=== PATIENT | male | born 1940 | race Caucasian/White ===

== ENCOUNTER → 2018-02-03 | Outpatient (CLI) | payer MEDICARE, OTHER ==
[~2018-02-03] MED LIST: ACDPT PO; AMLO2.5T PO; AMLO5TAB2 PO; CEPH500C PO; CLOP75TA PO; CYCL10TA9 PO; FAMO20TA5 PO; GLIP10TA23 PO; HYDR-3714 PO; HYDR1TAB PO; INSU100I16 SQ; LIRA0.6P SQ; MULT-963 PO; NEBI2.5T5 PO; NF-ALI300T PO; NITR0.3T6 SL; NTR.4SL SL; PITA2TAB2 PO; SITA1TAB6 PO; TRAM-21 PO
--- NOTE | 2018-02-03 13:06 | Diagnostic Imaging Report ---
PROCEDURE: MRI lumbar spine. TECHNIQUE: Multiplanar, multisequence MRI of the lumbar spine was performed without contrast. INDICATION: Low back pain with bilateral lower extremity radiculopathy. Lumbar spinal curvature and alignment are within normal limits. Vertebral body heights and disc spaces are maintained. There is mild desiccation of mid and lower lumbar disc. There are prominent osteophytes which are most pronounced on the anterior margin of endplates. There is mild diffuse bulging of the L3-L4 disc which results in mild neural foraminal stenosis, greater on the left. At L4-L5, there is also diffuse disc bulging with degenerative facet arthropathy and ligamentum flavum hypertrophy. Endplate spurring is most pronounced on the left and there is resulting moderately severe bilateral neural frontal stenosis and left lateral recess stenosis. At L5-S1, there is also degenerative facet arthropathy with probable right facet joint synovial cyst. This results in moderate bilateral neural foraminal stenosis and mild right lateral recess stenosis. There is no evidence of fracture. Conus medullaris unremarkable at the T12 level. Dominant cyst are noted in both kidneys. 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 There is also [id number] bilateral L5-S1 neural foraminal stenosis and mild right neural foraminal stenosis. Dictated by: Dictated on workstation # [id number]
== END ==
LOC: RAD 01-30 08:40
PROVIDERS: ATTEND Internal Medicine
DX: M48.061 Spinal stenosis, lumbar region without neurogenic claudication (principal); M51.16 Intervertebral disc disorders with radiculopathy, lumbar region; M99.73 Connective tissue and disc stenosis of intervertebral foramina of lumbar region
CPT/HCPCS: 72148

== ENCOUNTER → 2018-09-10 | Outpatient (CLI) | payer MEDICARE ==
[~2018-09-10] MED LIST changes: +GADOBUTROL 10 MMOL/10 ML (GADAVIST) VIAL IV ONE
--- NOTE | 2018-09-10 14:16 | Diagnostic Imaging Report ---
PROCEDURE: MR imaging abdomen with and without contrast. TECHNIQUE: Multiplanar, multisequence MR imaging of the abdomen was performed with and without contrast. INDICATION: Kidney cyst noted on prior MRI of the lumbar spine. The study is performed for followup. COMPARISON: Correlation is made with MRI of the lumbar spine from 02/03/2018. FINDINGS: Circumscribed T2 hyperintense masses are identified within both kidneys. Largest mass on the right is in the lower pole measuring 5.8 cm transverse. Largest mass on the left is in the upper pole measuring 5.2 cm transverse. No definite enhancement of the lesions is seen following contrast administration. The liver is unremarkable. No adrenal mass is identified. The pancreas is unremarkable. The visualized bowel loops are normal in caliber. There is no ascites. The aorta is non-aneurysmal. IMPRESSION: Numerous bilateral renal cysts. No enhancing lesion is seen. Dictated by: Dictated on workstation # [id number]
== END ==
LOC: RAD 12:03
PROVIDERS: ATTEND Specialist
DX: N28.1 Cyst of kidney, acquired (principal)
CPT/HCPCS: 74183

== ENCOUNTER 2021-05-15 06:06 | Emergency (ER) | payer MEDICARE ==
[~2021-05-15] VITALS: Ht 175 cm; Wt 84.0 kg
[~2021-05-15 06:06] MED LIST changes: -GADOBUTROL 10 MMOL/10 ML (GADAVIST) VIAL IV ONE
[2021-05-15 06:56] LABS: BILIRUBIN,URINE NEGATIVE (NEGATIVE); CLARITY,URINE CLEAR; COLOR,URINE YELLOW; GLUCOSE, URINE (UA) 3+ (NEGATIVE); KETONES,URINE NEGATIVE (NEGATIVE); LEUKOCYTE ESTERASE ,URINE NEGATIVE (NEGATIVE); NITRITE,URINE NEGATIVE (NEGATIVE); PH,URINE 5.5 (5-9); PROTEIN,URINE 1+ (NEGATIVE)
[2021-05-15 06:56] LABS: BASOPHILS # (AUTO) 0.1 10^3/uL (0.0-0.1); BASOPHILS % (AUTO) 1 % (0-10); EOSINOPHILS # (AUTO) 0.2 10^3/uL (0.0-0.3); EOSINOPHILS % (AUTO) 3 % (0-10); HEMATOCRIT 47 % (40-54); HEMOGLOBIN 16.1 g/dL (13.3-17.7); LYMPHOCYTES # (AUTO) 2.5 10^3/uL (1.0-4.0); LYMPHOCYTES % (AUTO) 29 % (12-44); MEAN CORPUSCULAR HEMOGLOBIN 32 pg (25-34); MEAN CORPUSCULAR HGB CONC 34 g/dL (32-36); MEAN CORPUSCULAR VOLUME 94 fL (80-99); MEAN PLATELET VOLUME 9.8 fL (9.0-12.2); MONOCYTES # (AUTO) 0.7 10^3/uL (0.0-1.0); MONOCYTES % (AUTO) 8 % (0-12); NEUTROPHILS # (AUTO) 5.2 10^3/uL (1.8-7.8); NEUTROPHILS % (AUTO) 59 % (42-75); PLATELET COUNT 344 10^3/uL (130-400); WHITE BLOOD COUNT 8.8 10^3/uL (4.3-11.0)
--- NOTE | 2021-05-15 06:56 | ED Back Pain ---
General Chief Complaint: Back Problems Stated Complaint: LEFT SIDE PAIN Nursing Triage Note: PT AMB TO ED FROM HOME WITH C/O L SIDED BACK/FLANK PAIN THAT BEGAN SATURDAY. REPORTS THE PAIN COMES AND GOES, WORSE WITH MOVEMENT. REPORTS IT FEELS LIKE HE HAS A KIDNEY STONE. DENIES N/V/D OR DIFFICULTY URINATING. Source of Information: Patient Exam Limitations: No Limitations History of Present Illness Date Seen by Provider: May 15, 2021 Time Seen by Provider: 06:40 Initial Comments Patient is an 80-year-old male who presents to the emergency department today with a chief complaint of low left flank pain. Onset on Saturday, 4 days ago. He states it started in the evening time. Patient states it reminds him of previous kidney stone "years ago". Patient states the pain is nonradiating, it seems to be worse with movement. It has been constant and unremitting. He tried Tylenol without any relief of symptoms but did take a hydrocodone last evening at about midnight with mild to moderate relief of symptoms. He states that he potentially has a little bit of decreased amounts of urination decreased frequency. He denies any blood in his urine, urgency. The pain does not radiate, he has no nausea or vomiting. No actual abdominal pain. He has had a history of 3 back surgeries but states that this is not midline pain and does not seem to be down into his legs. He has had no loss of continence. No numbness, weakness or tingling. He denies fevers or chills. No shortness of breath or chest pain. He does have a history of multiple cardiac stents. He has a history of type 2 diabetes. He is on Plavix. Denies any problems with diarrhea, black or bloody stools. Last bowel movement was yesterday. Denies rashes. All other review of systems reviewed and negative except as stated. Timing/Duration: 3-4 Days Severity: Moderate ("7") Pain/Injury Location: Other (low left flank) Modifying Factors: Worse With Movement; Improves With Pain Medication Allergies and Home Medications Allergies Coded Allergies: iodine (Verified Allergy, Unknown, SWELLING, 09/10/18) Patient Home Medication List Home Medication List Reviewed: Yes Acetaminophen/Diphenhydramine (Tylenol Pm) 1 Ea Tab, 1 TAB PO HS, (Reported) Entered as Reported by: MELANIA GODFREY on 12/02/12 1030 Aliskiren Hemifumarate (Tekturna) 300 Mg Tab, 1 TAB PO DAILY, (Reported) Entered as Reported by: DELMAR CHRISTOPHER on 01/26/14 133 Cephalexin Monohydrate (Cephalexin) 500 Mg Capsule, 1 EACH PO TID Prescribed by: MARY QUESADA on 06/17/141815 Clopidogrel Bisulfate (Plavix 75 Mg) 75 Mg Tablet, 75 MG PO DAILY, (Reported) Entered as Reported by: FERNANDO ZUNIGA on 10/17/12138 Cyclobenzaprine Hcl (Cyclobenzaprine Hcl) 10 Mg Tablet, 1 EACH PO Q8HR Prescribed by: DANIEL MENDOZA on 01/26/14 1431 Cyclobenzaprine Hcl (Cyclobenzaprine Hcl) 10 Mg Tablet, 1 EACH PO Q8H PRN for SPASMS Prescribed by: MARY QUESADA on 06/17/141815 Famotidine (Pepcid) 20 Mg Tablet, 20 MG PO BID, (Reported) Entered as Reported by: FERNANDO ZUNIGA on 10/17/12138 Glipizide (Glipizide Xl) 10 Mg Tab.sr.24h, 10 MG PO BID, (Reported) Entered as Reported by: FERNANDO ZUNIGA on 10/17/12138 Hydrocodone Bit/Acetaminophen (Hydrocodone-Apap 5-325 Tab) 1 Tab Tablet, 1 TAB PO Q4H PRN for PAIN Prescribed by: MARY QUESADA on 06/17/141815 Hydrocodone/Acetaminophen (Hydrocodone-Acetamin 7.5-325) 1 Each Tablet, 1 EACH PO Q6H PRN for PAIN-MODERATE (5-7) Prescribed by: GOOD RODRIGUEZ on 05/15/21 0813 Insulin Detemir (Levemir) 100 Unit/1 Ml Insuln.pen, 20 UNIT SQ DAILY AT LUNCH, (Reported) Entered as Reported by: FERNANDO ZUNIGA on 10/17/12 014 Liraglutide (Victoza) 0.6 Mg/0.1 Ml Pen.injctr, 14 MG SQ DAILY, (Reported) Entered as Reported by: DELMAR CHRISTOPHER on 01/26/141334 Multivitamin (Multi-Vitamin Daily) 1 Each Tablet, 1 TAB PO DAILY, (Reported) Entered as Reported by: MELANIA GODFREY on 12/02/12 1030 Nebivolol Hcl (Bystolic) 2.5 Mg Tablet, 2.5 MG PO DAILY, (Reported) Entered as Reported by: FERNANDO ZUNIGA on 10/17/12 0139 Pitavastatin Calcium (Livalo) 2 Mg Tablet, 2 MG PO HS, (Reported) Entered as Reported by: MELANIA GODFREY on 02/09/13 1106 Sitagliptin Phos/Metformin Hcl (Janumet 50/1,000 Mg (Non Form)) 1 Each Tablet, 1 EACH PO BID, (Reported) Entered as Reported by: DELMAR CHRSITOPHER on 01/26/14 1335 Tramadol Hcl (Ultram) 50 Mg Tablet, 50 MG PO Q4H Prescribed by: DANIEL MENDOZA on 01/26/14 1431 Review of Systems Constitutional: see HPI EENTM: no symptoms reported Respiratory: no symptoms reported Cardiovascular: no symptoms reported Gastrointestinal: other (low left flank pain) Genitourinary: other (decreased volume/frequency) Skin: no symptoms reported All Other Systems Reviewed Negative Unless Noted: Yes Past Hkwgdps-Arhdby-Viuqsu Hx Patient Social History Tobacco Use?: No Use of E-Cig and/or Vaping dev: No Substance use?: No Alcohol Use?: Yes Alcohol type: Beer, Wine Alcohol Frequency: Once in a while Pt feels they are or have been: No Immunizations Up To Date Tetanus Booster (TDap): Less than 5yrs Influenza Vaccine Up-to-Date: No; Not Current First/Initial COVID19 Vaccinat: 2020 Second COVID19 Vaccination Jesús: 2020 Third COVID19 Vaccination Date: MAR 2021 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 oz. 92.641607ug; 27.00 BMI Method:Stated General Appearance: No Apparent Distress, WD/WN HEENT: PERRL/EOMI Neck: Normal Inspection Cardiovascular: Regular Rate, Rhythm, Normal Peripheral Pulses Respiratory: Lungs Clear, Normal Breath Sounds, No Accessory Muscle Use, No Respiratory Distress Peripheral Pulses: 2+ Femoral (L) Gastrointestinal: Normal Bowel Sounds, No Pulsatile Mass, Non Tender, Soft; No Abnormal Bowel Sounds, No Distended, No Guarding, No Rebound, No Tenderness; Other (no tenderness in the abdomen, no reproducible tenderness in the left flank; however, patient states pain is in the low left flank, just above the posterior superior iliac crest; no overlying rashes/lesions.) Back: No Vertebral Tenderness, Other (negative straight leg raise) Extremity: Normal Capillary Refill, Normal Inspection, Normal Range of Motion, Non Tender, No Calf Tenderness Neurologic/Psychiatric: Alert, Oriented x3, No Motor/Sensory Deficits, Normal Mood/Affect Skin: Normal Color, Warm/Dry, Other (no rashes or lestions overlying the skin of the affected area) Progress/Results/Core Measures Results/Orders Lab Results Laboratory Tests Test 05/15/21 06:18 05/15/21 06:24 Range/Units Urine Color YELLOW Urine Clarity CLEAR Urine pH 5.5 5-9 Urine Specific [place] >=1.030 1.016-1.022 Urine Protein 1+ H NEGATIVE Urine Glucose (UA) 3+ H NEGATIVE Urine Ketones NEGATIVE NEGATIVE Urine Nitrite NEGATIVE NEGATIVE Urine Bilirubin NEGATIVE NEGATIVE Urine Urobilinogen 0.2 < = 1.0 MG/DL Urine Leukocyte Esterase NEGATIVE NEGATIVE Urine RBC (Auto) TRACE-I H NEGATIVE Urine RBC RARE /HPF Urine WBC RARE /HPF Urine Squamous Epithelial Cells RARE /HPF Urine Crystals NONE /LPF Urine Bacteria TRACE /HPF Urine Casts NONE /LPF Urine Mucus NEGATIVE /LPF Urine Culture Indicated NO White Blood Count 8.8 4.3-11.0 10^3/uL Red Blood Count 5.06 4.30-5.52 10^6/uL Hemoglobin 16.1 13.3-17.7 g/dL Hematocrit 47 40-54 % Mean Corpuscular Volume 94 80-99 fL Mean Corpuscular Hemoglobin 32 25-34 pg Mean Corpuscular Hemoglobin Concent 34 32-36 g/dL Red Cell Distribution Width 13.2 10.0-14.5 % Platelet Count 344 130-400 10^3/uL Mean Platelet Volume 9.8 9.0-12.2 fL Immature Granulocyte % (Auto) 1 % Neutrophils (%) (Auto) 59 42-75 % Lymphocytes (%) (Auto) 29 12-44 % Monocytes (%) (Auto) 8 0-12 % Eosinophils (%) (Auto) 3 0-10 % Basophils (%) (Auto) 1 0-10 % Neutrophils # (Auto) 5.2 1.8-7.8 10^3/uL Lymphocytes # (Auto) 2.5 1.0-4.0 10^3/uL Monocytes # (Auto) 0.7 0.0-1.0 10^3/uL Eosinophils # (Auto) 0.2 0.0-0.3 10^3/uL Basophils # (Auto) 0.1 0.0-0.1 10^3/uL Immature Granulocyte # (Auto) 0.1 0.0-0.1 10^3/uL Sodium Level 136 135-145 MMOL/L Potassium Level 3.8 3.6-5.0 MMOL/L Chloride Level 102 98-107 MMOL/L Carbon Dioxide Level 20 L 21-32 MMOL/L Anion Gap 14 5-14 MMOL/L Blood Urea Nitrogen 18 7-18 MG/DL Creatinine 1.15 0.60-1.30 MG/DL Estimat Glomerular Filtration Rate 61 BUN/Creatinine Ratio 16 Glucose Level 174 H 70-105 MG/DL Calcium Level 9.7 8.5-10.1 MG/DL My Orders Orders - GOOD RODRIGUEZ MD Ed Iv/Invasive Line Start (05/15/21 06:50) Cbc With Automated Diff (05/15/21 06:50) Basic Metabolic Panel (05/15/21 06:50) Ua Culture If Indicated (05/15/21 06:50) Abdomen/Kub 1view (05/15/21 06:50) Ct Abd/Pelvis Wo(Kidney Stone) (05/15/21 06:50) Hydrocodone/Apap 7.5/325 Tab (Lortab 7. (05/15/21 07:00) Medications Given in ED Vital Signs/I&O 05/15/21 05/15/21 06:14 08:32 Temp 36.3 Pulse 94 87 Resp 16 16 B/P (MAP) 145/86 (105) 125/74 Pulse Ox 94 97 O2 Delivery Room Air Room Air Blood Pressure Mean: 105 Progress Progress Note : Time: 08:08 Progress Note Patient reevaluated, had significant relief of discomfort with the 7.5 hydrocodone. Labs have been reviewed, he has a mild elevation in his serum blood sugar, he is a known diabetic. The rest of his labs are unremarkable. He had trace blood in his urine. CT scan of the abdomen and pelvis, renal stone protocol was reviewed, no evidence of obstructive uropathy or any other acute pathology. His vital signs remained stable. I recommended some anti- inflammatories as well as some hydrocodone for pain. I also recommended close observation of symptoms, return precautions were given. Patient is instructed to follow-up with his primary care physician. He verbalizes understanding and is comfortable with this plan of care. All questions are sought and answered. Patient is stable for discharge. Diagnostic Imaging Diagonstic Imaging: CT Comments [facility], [place] NAME: ROBERT MALDONADO [facility] REC#: [id number] PT STATUS: REG ER : 1940 PHYSICIAN: GOOD RODRIGUEZ MD ADMIT DATE: 05/15/21/ER Draft Date of Exam:05/15/21 CT ABD/PELVIS WO(KIDNEY STONE) PROCEDURE: CT urinary tract, rule out kidney stone. TECHNIQUE: Multiple contiguous axial images were obtained through the abdomen and pelvis without the use of intravenous contrast. Auto Exposure Controls were utilized during the CT exam to meet ALARA standards for radiation dose reduction. INDICATION: Flank pain. FINDINGS: The heart size is normal. There is mild bibasilar atelectasis and/or pneumonitis. The liver is normal in size without focal lesions. Gallbladder surgically absent. No biliary ductal dilatation. Spleen is normal. The pancreas and adrenal glands are unremarkable. There are bilateral renal cysts. There is no evidence of obstructive uropathy. There is moderate atherosclerotic calcification of the aorta which is nonaneurysmal. The bowel gas pattern is nonspecific. Bladder is normal. There is no pelvic mass, adenopathy or free fluid. There is no free air. No ascites. No focal inflammatory changes. There are degenerative and postoperative changes in spine. IMPRESSION: Patchy bibasilar atelectasis and/or pneumonitis. Bilateral renal cysts without evidence of obstructive uropathy. Moderate atherosclerotic calcification of the aorta which is nonaneurysmal. Degenerative and postsurgical changes in the spine. Dictated on workstation # [id number] Dict: 05/15/21 0731 Trans: 05/15/21 0735 CVB [id number] Interpreted by: LATRICIA ERICKSON MD Electronically signed by: [facility] [place], [place] NAME: ROBERT MALDONADO [facility] REC#: [id number] PT STATUS: REG ER : 1940 PHYSICIAN: GOOD RODRIGUEZ MD ADMIT DATE: 05/15/21/ER Draft Date of Exam:05/15/21 ABDOMEN/KUB 1VIEW REASON FOR EXAM: Left-sided flank pain. COMPARISON: None TECHNIQUE: 2 views of the abdomen FINDINGS: The bowel gas pattern is nondistended. No large collection of free intraperitoneal air is seen. A moderate amount of gas and fecal material are present in the colon. Surgical clips are seen in the pelvis. No abnormal extraosseous calcifications are present. Posterior fusion changes are seen in the lumbar spine. IMPRESSION: 1. No evidence of bowel obstruction or large collection of free intraperitoneal air. 2. Moderate amount of stool seen in the colon which can be seen with constipation. Dictated on workstation # [id number] Dict: 05/15/21 0805 Trans: 05/15/21 0809 CVB [id number] Interpreted by: BERNICE LANGE DO Electronically signed by: Departure Impression Primary Impression: Left flank pain Disposition: 01 HOME, SELF-CARE Condition: Stable Departure-Patient Inst. Decision time for Depature: 08:11 Referrals: LYNNE GARCIA DO (PCP/Family) Primary Care Physician Patient Instructions: Flank Pain Add. Discharge Instructions: Monitor yourself for symptoms such as fever, abdominal pain, nausea and burning with urination. Take an ppud-sqn-zhirlia anti-inflammatory such as ibuprofen, 2 to 3 pills which is 400 to 600 mg every 6-8 hours as needed for pain. You can also take hydrocodone, 7.5 mg tablets every 6 hours as needed for worse pain. Please come back to the emergency department if you develop any worsening symptoms. Please follow-up with your primary care provider. Scripts Hydrocodone/Acetaminophen (Hydrocodone-Acetamin 7.5-325) 1 Each Tablet 1 EACH PO Q6H PRN for PAIN-MODERATE (5-7), #15 TAB Prov: GOOD RODRIGUEZ MD 05/15/21 Copy Copies To 1: LYNNE GARCIA KATHRYN M MD May 15, 2021 06:56
[2021-05-15] MEDS ORDERED: HYDROcodone/APAP 7.5 MG/325 MG (LORTAB, LORCET PLUS) TABLET PO ONE (07:00)
[2021-05-15 07:02] LABS: POTASSIUM 3.8 MMOL/L (3.6-5.0)
[2021-05-15 07:04] LABS: CALCIUM 9.7 MG/DL (8.5-10.1)
[2021-05-15 07:08] LABS: CREATININE SERUM 1.15 MG/DL (0.60-1.30)
[2021-05-15 07:15] LABS: BACTERIA,URINE TRACE /HPF; RBC,URINE RARE /HPF; SQUAMOUS EPITHELIAL CELL,UR RARE /HPF; WBC,URINE RARE /HPF
--- NOTE | 2021-05-15 07:35 | Diagnostic Imaging Report ---
PROCEDURE: CT urinary tract, rule out kidney stone. TECHNIQUE: Multiple contiguous axial images were obtained through the abdomen and pelvis without the use of intravenous contrast. Auto Exposure Controls were utilized during the CT exam to meet ALARA standards for radiation dose reduction. INDICATION: Flank pain. FINDINGS: The heart size is normal. There is mild bibasilar atelectasis and/or pneumonitis. The liver is normal in size without focal lesions. Gallbladder surgically absent. No biliary ductal dilatation. Spleen is normal. The pancreas and adrenal glands are unremarkable. There are bilateral renal cysts. There is no evidence of obstructive uropathy. There is moderate atherosclerotic calcification of the aorta which is nonaneurysmal. The bowel gas pattern is nonspecific. Bladder is normal. There is no pelvic mass, adenopathy or free fluid. There is no free air. No ascites. No focal inflammatory changes. There are degenerative and postoperative changes in spine. IMPRESSION: Patchy bibasilar atelectasis and/or pneumonitis. Bilateral renal cysts without evidence of obstructive uropathy. Moderate atherosclerotic calcification of the aorta which is nonaneurysmal. Degenerative and postsurgical changes in the spine. Dictated by: Dictated on workstation # [id number]
--- NOTE | 2021-05-15 08:10 | Diagnostic Imaging Report ---
REASON FOR EXAM: Left-sided flank pain. COMPARISON: None TECHNIQUE: 2 views of the abdomen FINDINGS: The bowel gas pattern is nondistended. No large collection of free intraperitoneal air is seen. A moderate amount of gas and fecal material are present in the colon. Surgical clips are seen in the pelvis. No abnormal extraosseous calcifications are present. Posterior fusion changes are seen in the lumbar spine. IMPRESSION: 1. No evidence of bowel obstruction or large collection of free intraperitoneal air. 2. Moderate amount of stool seen in the colon which can be seen with constipation. Dictated by: Dictated on workstation # [id number]
[2021-05-15] MEDS ORDERED: HYDR-3817 PO (08:13)
[2021-05-15 08:32] VITALS: BP 125/74
== END 2021-05-15 08:32 | disposition home or self-care (01) ==
LOC: EDUNIT# 06:06 → ER 06:08
DX: R10.9 Unspecified abdominal pain (principal)
CPT/HCPCS: 36415; 74018; 74176; 80048; 81000; 85025

== ENCOUNTER 2022-01-09 09:33 | Inpatient (IN) | payer MEDICARE ==
[2022-01-09] VITALS (11 sets, daily range): BP systolic 105–159; BP diastolic 62–90
[~2022-01-09] VITALS: Ht 175 cm; Wt 85.4 kg
[~2022-01-09 09:33] MED LIST changes: +HYDR-3817 PO
[2022-01-09 09:47] LABS: BASOPHILS % (AUTO) 0 % (0-10); EOSINOPHILS # (AUTO) 0.1 10^3/uL (0.0-0.3); EOSINOPHILS % (AUTO) 1 % (0-10); HEMATOCRIT 51 % (40-54); HEMOGLOBIN 17.1 g/dL (13.3-17.7); LYMPHOCYTES # (AUTO) 1.4 10^3/uL (1.0-4.0); LYMPHOCYTES % (AUTO) 14 % (12-44); MEAN CORPUSCULAR HEMOGLOBIN 31 pg (25-34); MEAN CORPUSCULAR HGB CONC 34 g/dL (32-36); MEAN CORPUSCULAR VOLUME 93 fL (80-99); MEAN PLATELET VOLUME 10.4 fL (9.0-12.2); MONOCYTES # (AUTO) 0.6 10^3/uL (0.0-1.0); MONOCYTES % (AUTO) 6 % (0-12); NEUTROPHILS # (AUTO) 7.5 10^3/uL (1.8-7.8); NEUTROPHILS % (AUTO) 77 % (42-75); PLATELET COUNT 314 10^3/uL (130-400); WHITE BLOOD COUNT 9.8 10^3/uL (4.3-11.0)
[2022-01-09 10:04] LABS: ALBUMIN 4.3 GM/DL (3.2-4.5); POTASSIUM 4.4 MMOL/L (3.6-5.0)
[2022-01-09 10:05] LABS: CALCIUM 9.4 MG/DL (8.5-10.1)
[2022-01-09 10:06] LABS: TOTAL PROTEIN 7.6 GM/DL (6.4-8.2)
[2022-01-09 10:08] LABS: BILIRUBIN,TOTAL 0.7 MG/DL (0.1-1.0)
[2022-01-09 10:10] LABS: CREATININE SERUM 1.26 MG/DL (0.60-1.30)
[2022-01-09 10:13] LABS: MAGNESIUM 1.8 MG/DL (1.6-2.4)
--- NOTE | 2022-01-09 10:21 | ED Chest Pain ---
General Chief Complaint: Chest Pain Stated Complaint: CP Nursing Triage Note: PT PRESENTS TO ED VIA EMS FROM DR RODGERS OFFICE FOR CP. PT REPROTS HE HAD M,ILD CP YESTERDAY BUT WHEN HE WOKE UP THIS AM IT WENT WAY BUT CAME BACK LATER IN THE MORNING. PT THEN WENT TO SEE HIS DR WHO REFERRED HIM TO ED. PT RECIEVED 324 MG ASA AND NITRO X 2 FLIGHT OPERATIONS MANAGER. PT REPORTS HE IS CURRENTLY CP FREE UPON ARRIVAL TO ED. Source: patient Exam Limitations: no limitations History of Present Illness Date Seen by Provider: Jan 09, 2022 Time Seen by Provider: 09:34 Initial Comments Here with report of chest pain centrally that he had yesterday that went away but came back again this morning. He went to see his doctor, Dr. Roldan, who ultimately sent him here by EMS. Patient did receive ASA 324 mg p.o. as well as nitro sublingual x1 at the doctor's office which did help the pain and repeated by EMS which resolved the pain. Does have history of heart stents and follows with Dr. Oliver in [place]. Denies nausea, vomiting, sweating, weakness or other concerns. States he is pain-free currently. EMS noted that his blood pressure was a little higher when his pain was going on and the blood pressure improved and pain went away after nitroglycerin sublingual. Timing/Duration: changing over time, resolved prior to arrival, 1 day Severity/Quality: moderate, pressure Location: central Radiation: no radiation Prior CP/Workup: cardiac cath ASA po FLIGHT OPERATIONS MANAGER: Yes NTG SL FLIGHT OPERATIONS MANAGER: Yes Associated Symptoms: No abdominal pain, No diaphoresis, No dizziness, No nausea/vomiting, No shortness of breath, No weakness Allergies and Home Medications Allergies Coded Allergies: iodine (Verified Allergy, Unknown, SWELLING, 09/10/18) Patient Home Medication List Home Medication List Reviewed: Yes Acetaminophen/Diphenhydramine (Tylenol Pm) 1 Ea Tab, 1 TAB PO HS, (Reported) Entered as Reported by: MELANIA GODFREY on 12/02/12 1030 Aliskiren Hemifumarate (Tekturna) 300 Mg Tab, 1 TAB PO DAILY, (Reported) Entered as Reported by: DELMAR CHRISTOPHER on 01/26/14 1335 Cephalexin Monohydrate (Cephalexin) 500 Mg Capsule, 1 EACH PO TID Prescribed by: MARY QUESADA on 06/17/141815 Clopidogrel Bisulfate (Plavix 75 Mg) 75 Mg Tablet, 75 MG PO DAILY, (Reported) Entered as Reported by: FERNANDO ZUNIGA on 10/17/12138 Cyclobenzaprine Hcl (Cyclobenzaprine Hcl) 10 Mg Tablet, 1 EACH PO Q8HR Prescribed by: DANIEL MENDOZA on 01/26/14 1431 Cyclobenzaprine Hcl (Cyclobenzaprine Hcl) 10 Mg Tablet, 1 EACH PO Q8H PRN for SPASMS Prescribed by: MARY QUESADA on 06/17/141815 Famotidine (Pepcid) 20 Mg Tablet, 20 MG PO BID, (Reported) Entered as Reported by: FERNANDO ZUNIGA on 10/17/12138 Glipizide (Glipizide Xl) 10 Mg Tab.sr.24h, 10 MG PO BID, (Reported) Entered as Reported by: FERNANDO ZUNIGA on 10/17/12138 Hydrocodone Bit/Acetaminophen (Hydrocodone-Apap 5-325 Tab) 1 Tab Tablet, 1 TAB PO Q4H PRN for PAIN Prescribed by: MARY QUESADA on 06/17/141815 Hydrocodone/Acetaminophen (Hydrocodone-Acetamin 7.5-325) 1 Each Tablet, 1 EACH PO Q6H PRN for PAIN-MODERATE (5-7) Prescribed by: GOOD RODRIGUEZ on 05/15/21 0813 Insulin Detemir (Levemir) 100 Unit/1 Ml Insuln.pen, 20 UNIT SQ DAILY AT LUNCH, (Reported) Entered as Reported by: FERNANDO ZUNIGA on 10/17/12 014 Liraglutide (Victoza) 0.6 Mg/0.1 Ml Pen.injctr, 14 MG SQ DAILY, (Reported) Entered as Reported by: DELMAR CHRISTOPHER on 01/26/14 1335 Multivitamin (Multi-Vitamin Daily) 1 Each Tablet, 1 TAB PO DAILY, (Reported) Entered as Reported by: MELANIA GODFREY on 12/02/12 1030 Nebivolol Hcl (Bystolic) 2.5 Mg Tablet, 2.5 MG PO DAILY, (Reported) Entered as Reported by: FERNANDO ZUNIGA on 10/17/12138 Pitavastatin Calcium (Livalo) 2 Mg Tablet, 2 MG PO HS, (Reported) Entered as Reported by: MELANIA GODFREY on 02/09/13 1106 Sitagliptin Phos/Metformin Hcl (Janumet 50/1,000 Mg (Non Form)) 1 Each Tablet, 1 EACH PO BID, (Reported) Entered as Reported by: DELMAR CHRISTOPHER on 01/26/14 1335 Tramadol Hcl (Ultram) 50 Mg Tablet, 50 MG PO Q4H Prescribed by: DANIEL MENDOZA on 01/26/14 1431 Review of Systems Review of Systems Constitutional: see HPI; No chills, No fever EENTM: No Nose Congestion, No Throat Pain Respiratory: Denies Cough, Denies Shortness of Air Cardiovascular: Chest Pain; Denies Edema Gastrointestinal: Denies Nausea, Denies Vomiting Genitourinary: No Symptoms Reported Musculoskeletal: No back pain, No muscle pain Skin: no symptoms reported Psychiatric/Neurological: No Symptoms Reported All Other Systems Reviewed Negative Unless Noted: Yes Past Dfksqgn-Kuafmu-Oisdnx Hx Patient Social History Tobacco Use?: No Substance use?: No Alcohol Use?: Yes Alcohol Frequency: Once in a while Pt feels they are or have been: No Immunizations Up To Date Tetanus Booster (TDap): Less than 5yrs First/Initial COVID19 Vaccinat: 2020 Second COVID19 Vaccination Jesús: 2020 Third COVID19 Vaccination Date: MAR 2021 Seasonal Allergies Seasonal Allergies: No Past Medical History Surgery/Hospitalization HX: CHF, DM 2, HTN, 12 STENTS, high chol Hypertension Reproductive Disorders: No Sexually Transmitted Disease: No HIV/AIDS: No Diabetes, Insulin dep Adverse Reaction/Blood Tranf: No Family Medical History Reviewed Nursing Family Hx FH: cancer 19 MOTHER Myocardial infarction 19 FATHER Physical Exam Vital Signs Vital Signs - First Documented 01/09/22 09:45 Temp 36.7 Pulse 108 Resp 22 B/P (MAP) 133/98 (110) Pulse Ox 95 Capillary Refill : Less Than 3 Seconds Height, Weight, BMI Height: 5'9" Weight: 205lbs. oz. 92.600144am; 28.00 BMI Method:Stated General Appearance: No Apparent Distress, WD/WN HEENT: PERRL/EOMI, Pharynx Normal Neck: Non Tender, Supple Respiratory: Lungs Clear, Normal Breath Sounds Cardiovascular: Regular Rate, Rhythm, No Murmur Gastrointestinal: Non Tender, Soft Extremity: Normal Range of Motion, Non Tender Neurologic/Psychiatric: Alert, Oriented x3 Skin: Normal Color, Warm/Dry Progress/Results/Core Measures Results/Orders Lab Results Laboratory Tests Test 01/09/22 09:38 Range/Units White Blood Count 9.8 4.3-11.0 10^3/uL Red Blood Count 5.44 4.30-5.52 10^6/uL Hemoglobin 17.1 13.3-17.7 g/dL Hematocrit 51 40-54 % Mean Corpuscular Volume 93 80-99 fL Mean Corpuscular Hemoglobin 31 25-34 pg Mean Corpuscular Hemoglobin Concent 34 32-36 g/dL Red Cell Distribution Width 13.6 10.0-14.5 % Platelet Count 314 130-400 10^3/uL Mean Platelet Volume 10.4 9.0-12.2 fL Immature Granulocyte % (Auto) 1 % Neutrophils (%) (Auto) 77 H 42-75 % Lymphocytes (%) (Auto) 14 12-44 % Monocytes (%) (Auto) 6 0-12 % Eosinophils (%) (Auto) 1 0-10 % Basophils (%) (Auto) 0 0-10 % Neutrophils # (Auto) 7.5 1.8-7.8 10^3/uL Lymphocytes # (Auto) 1.4 1.0-4.0 10^3/uL Monocytes # (Auto) 0.6 0.0-1.0 10^3/uL Eosinophils # (Auto) 0.1 0.0-0.3 10^3/uL Basophils # (Auto) 0.0 0.0-0.1 10^3/uL Immature Granulocyte # (Auto) 0.1 0.0-0.1 10^3/uL Prothrombin Time 13.0 12.2-14.7 SEC INR Comment 1.0 0.8-1.4 Activated Partial Thromboplast Time 30 24-35 SEC D-Dimer < 0.27 0.00-0.49 UG/ML Sodium Level 138 135-145 MMOL/L Potassium Level 4.4 3.6-5.0 MMOL/L Chloride Level 101 98-107 MMOL/L Carbon Dioxide Level 22 21-32 MMOL/L Anion Gap 15 H 5-14 MMOL/L Blood Urea Nitrogen 14 7-18 MG/DL Creatinine 1.26 0.60-1.30 MG/DL Estimat Glomerular Filtration Rate 57 BUN/Creatinine Ratio 11 Glucose Level 273 H 70-105 MG/DL Calcium Level 9.4 8.5-10.1 MG/DL Corrected Calcium 9.2 8.5-10.1 MG/DL Magnesium Level 1.8 1.6-2.4 MG/DL Total Bilirubin 0.7 0.1-1.0 MG/DL Aspartate Amino Transf (AST/SGOT) 24 5-34 U/L Alanine Aminotransferase (ALT/SGPT) 27 0-55 U/L Alkaline Phosphatase 77 40-136 U/L Myoglobin 51.1 10.0-92.0 NG/ML Troponin I 0.310 *H <0.028 NG/ML B-Type Natriuretic Peptide 56.2 <100.0 PG/ML Total Protein 7.6 6.4-8.2 GM/DL Albumin 4.3 3.2-4.5 GM/DL My Orders Orders - YANDEL URENA MD Cbc With Automated Diff (01/09/22 09:42) Magnesium (01/09/22 09:42) Chest 1 View, Ap/Pa Only (01/09/22 09:42) Ekg Tracing (01/09/22 09:42) Comprehensive Metabolic Panel (01/09/22 09:42) Myoglobin Serum (01/09/22 09:42) Protime With Inr (01/09/22 09:42) Partial Thromboplastin Time (01/09/22 09:42) O2 (01/09/22 09:42) Monitor-Rhythm Ecg Trace Only (01/09/22 09:42) Lipid Panel (01/10/22 06:00) Ed Iv/Invasive Line Start (01/09/22 09:42) Bnp [place] (01/09/22 09:42) Fibrin Degradation Products (01/09/22 09:42) Troponin I [place] (01/09/22 09:42) Enoxaparin Injection (Lovenox Injection) (01/09/22 10:45) Ed Admission (Communication) (01/09/22 10:45) Medications Given in ED Current Medications Medications Dose Ordered Sig/Ingrid Route Start Time Stop Time Status Last Admin Dose Admin Enoxaparin Sodium 90 mg ONCE ONCE SC 01/09/22 10:45 01/09/22 10:46 DC 01/09/22 10:51 90 MG Vital Signs/I&O 01/09/22 09:45 Temp 36.7 Pulse 108 Resp 22 B/P (MAP) 133/98 (110) Pulse Ox 95 Blood Pressure Mean: 110 Progress Progress Note : Progress Note Seen and evaluated. IV established by EMS, labs, EKG and chest x-ray ordered. Patient has had aspirin and nitroglycerin. Overall doing better currently. Monitor patient. 1025: Lab notified of troponin of 0.31. 1045: I have discussed the case with both Dr. Ryan and Dr. Lawson. Dr. Lawson accepts patient in consult and recommends Lovenox 1 mg/kg subcu which has been ordered. Dr. Ryan accepts patient for admission, inpatient status. Patient and family agree with plan. Initial ECG Impression Date: Jan 09, 2022 Initial ECG Impression Time: 09:40 Initial ECG Rate: 104 Initial ECG Rhythm: S.Tach Comment Sinus rhythm with inferior Q waves, left axis deviation, tachycardic rate that is changed from 11/27/2012. No evidence of ST elevation NM. Interpreted by me. Diagnostic Imaging Diagonstic Imaging: Xray Plain Films/CT/US/NM/MRI: chest Comments [facility], [place] NAME: ROBERT MALDONADO [facility] REC#: [id number] PT STATUS: REG ER : 1940 PHYSICIAN: YANDEL URENA MD ADMIT DATE: 01/09/22/ER Draft Date of Exam:01/09/22 CHEST 1 VIEW, AP/PA ONLY INDICATION: Chest pain. TECHNIQUE: Single view chest 10:03 AM. CORRELATION STUDY: 12/02/2012 FINDINGS: Heart size enlarged. There is long coronary artery stent over left heart border. Vasculature overall within normal limits. Slight asymmetric opacity medial right lung base may reflect minimal areas of infiltrate. Otherwise superimposed what appears to be chronic change of the lung parenchyma. IMPRESSION: 1. Cardiac enlargement without failure. Long coronary artery stent over left heart border. 2. Question minimal atelectasis or infiltrate medial right lung base. Dictated on workstation # [id number] Dict: 01/09/22 1017 Trans: 01/09/22 [facility] [id number] Interpreted by: JEFFERY WOLFF DO Electronically signed by: Departure Communication (Admissions) Time/Spoke to Admitting Phy: 10:44 Time/Spoke to Consulting Phy: 10:40 Impression Primary Impression: Non-STEMI (non-ST elevated myocardial infarction) Disposition: ADMITTED INPATIENT Condition: Stable Admissions Decision to Admit Reason: Admit from ER (General) Decision to Admit/Date: Jan 09, 2022 Time/Decision to Admit Time: 10:40 Departure-Patient Inst. Referrals: LYNNE ROLDAN DO (PCP) Primary Care Physician JUAN C ROLDAN DNP (Family) Primary Care Physician YANDEL URENA MD Jan 09, 2022 10:21
--- NOTE | 2022-01-09 10:24 | Diagnostic Imaging Report ---
INDICATION: Chest pain. TECHNIQUE: Single view chest 10:03 AM. CORRELATION STUDY: 12/02/2012 FINDINGS: Heart size enlarged. There is long coronary artery stent over left heart border. Vasculature overall within normal limits. Slight asymmetric opacity medial right lung base may reflect minimal areas of infiltrate. Otherwise superimposed what appears to be chronic change of the lung parenchyma. IMPRESSION: 1. Cardiac enlargement without failure. Long coronary artery stent over left heart border. 2. Question minimal atelectasis or infiltrate medial right lung base. Dictated by: Dictated on workstation # [id number]
[2022-01-09] MEDS ORDERED: ENOXAPARIN 100 MG/1 ML (LOVENOX) SYR SC ONE (10:45)
--- NOTE | 2022-01-09 11:26 | History & Physical-Hospitalist ---
History of Present Illness HPI/Chief Complaint Patient is an 81-year-old male with past medical history of coronary artery disease status post multiple stents who presented to the emergency department due to chest pain. He states that he started feeling poorly yesterday but it got better overnight. He woke up and had recurrent chest pressure. He states it did not radiate anywhere else. He denies any diaphoresis, nausea, shortness of breath, lower extremity edema. He checked his blood pressure this morning and states it was 207/134. He was then seen by his primary care physician this morning who did an EKG and gave him nitro which helped his pain. They recommended him seeking evaluation in the emergency department at that point. He received another nitro which resolved his pain but work-up revealed a troponin of 0.3 and he is being admitted for further management of his NSTEMI. Source: patient Date Seen 01/09/22 Time Seen by a Provider: 11:19 Attending Physician Micheal Roldan DO PCP Admitting Physician: Attending Physician: Referring Physician Date of Admission Home Medications & Allergies Home Medications Reviewed patient Home Medication Reconciliation performed by pharmacy medication reconciliations processing technician and/or nursing. Patients Allergies have been reviewed. Allergies Allergies Coded Allergies iodine (Verified Allergy, Unknown, SWELLING, 09/10/18) Past Nhjdtzt-Hkaemm-Njayqi Hx Patient Social History Marrital Status: Employed/Student: retired Tobacco Use?: No Smoking Status: Never a Smoker Substance use?: No Alcohol Use?: Yes Alcohol Frequency: Once in a while Pt feels they are or have been: No Immunizations Up To Date Date of Influenza Vaccine: Apr 16, 2014 First/Initial COVID19 Vaccinat: 2020 Second COVID19 Vaccination Jesús: 2020 Date of Pneumonia Vaccine: May 16, 2012 Seasonal Allergies Seasonal Allergies: No Current Status Advance Directives: No Primary Language: Kenyan Preferred Spoken Language: Kenyan Past Medical History Coronary Artery Disease, Hypertension Sexually Transmitted Disease: No HIV/AIDS: No Diabetes, Non-Insulin dep Adverse Reaction/Blood Tranf: No Family Medical History Reviewed Nursing Family Hx FH: cancer 19 MOTHER Myocardial infarction 19 FATHER Heart Disease Review of Systems Constitutional: No diaphoresis; malaise (x1 day) EENTM: no symptoms reported Respiratory: No short of breath Cardiovascular: chest pain; No edema; Hx of Intervention; No palpitations, No syncope Gastrointestinal: No abdominal pain, No loss of appetite, No nausea, No vomiting Genitourinary: no symptoms reported Musculoskeletal: no symptoms reported Skin: no symptoms reported Psychiatric/Neurological: No Symptoms Reported Physical Exam Physical Exam Vital Signs Vital Signs - First Documented 01/09/22 09:45 Temp 36.7 Pulse 108 Resp 22 B/P (MAP) 133/98 (110) Pulse Ox 96 O2 Delivery Nasal Cannula O2 Flow Rate 2.00 Capillary Refill : Less Than 3 Seconds Height, Weight, BMI Height: 5'9" Weight: 205lbs. oz. 92.898820bk; 28.00 BMI Method:Stated General Appearance: No Apparent Distress, WD/WN, Obese HEENT: PERRL/EOMI, Moist Mucous Membranes; No Scleral Icterus (L), No Scleral Icterus (R) Neck: Normal Inspection, Supple; No Carotid Bruit Respiratory: Lungs Clear, No Accessory Muscle Use, No Respiratory Distress Cardiovascular: Regular Rate, Rhythm, No JVD, No Murmur Gastrointestinal: Normal Bowel Sounds, Non Tender, Soft Extremity: Normal Capillary Refill, No Calf Tenderness, No Pedal Edema Neurologic/Psychiatric: Alert, Oriented x3, Normal Mood/Affect Skin: Normal Color, Warm/Dry Results Results/Procedures Labs Laboratory Tests 01/10/22 04:55 01/11/22 04:39 Patient resulted labs reviewed. Imaging: Reviewed Imaging Report Imaging [facility], [place] NAME: ROBERT MALDONADO [facility] REC#: [id number] PT STATUS: REG ER : 1940 PHYSICIAN: YANDEL URENA MD ADMIT DATE: 01/09/22/ER Draft Date of Exam:01/09/22 CHEST 1 VIEW, AP/PA ONLY INDICATION: Chest pain. TECHNIQUE: Single view chest 10:03 AM. CORRELATION STUDY: 12/02/2012 FINDINGS: Heart size enlarged. There is long coronary artery stent over left heart border. Vasculature overall within normal limits. Slight asymmetric opacity medial right lung base may reflect minimal areas of infiltrate. Otherwise superimposed what appears to be chronic change of the lung parenchyma. IMPRESSION: 1. Cardiac enlargement without failure. Long coronary artery stent over left heart border. 2. Question minimal atelectasis or infiltrate medial right lung base. Dictated on workstation # [id number] Dict: 01/09/22 1017 Trans: 01/09/22 1023 [id number] Interpreted by: JEFFERY WOLFF DO Electronically signed by: Assessment/Plan Admission Diagnosis NSTEMI Admission Status: Inpatient Order (span 2 midnights) Reason for Inpatient Admission: see below Assessment and Plan NSTEMI CAD Chest pain resolved with nitro Discussed with Dr Lawson who will see him this afternoon Troponin elevated 0.310 on admission ASA given at PCP's Lovenox 90mg x1 Likely will need cath pending his next troponin HTN BP was 207/134 at home Improved now with nitro Continue to monitor IDDMII Continue home regimen as able SSI BS 273 on arrival Accu checks ACHS Hold home metformin DVT ppx: Lovenox therapeutic as above will cover for today Diagnosis/Problems Diagnosis/Problems (1) CAD (coronary artery disease) (2) Essential (primary) hypertension (3) HLD (hyperlipidemia) (4) Non-insulin dependent type 2 diabetes mellitus (5) Non-STEMI (non-ST elevated myocardial infarction) Clinical Quality Measures AMI/AHF: ASA po Prior to arrival: Yes Copy Copies To 1: MICHEAL ROLDAN KATELYN M MD Jan 09, 2022 11:26
[2022-01-09] MEDS ORDERED: ONDANSETRON 4 MG/2 ML (SDV) Z0FRAN IVP PRN (13:00)
[2022-01-09] MEDS ORDERED: PATIENT MAY USE OWN MEDS, ALL PO SCH (13:00)
[2022-01-09] MEDS ORDERED: NITROGLYCERIN 0.4 MG SL TABS BTL 25'S SL PRN (13:00)
[2022-01-09] MEDS ORDERED: morphine INJ 4 MG/ML 1 ML (VIAL/SYRINGE) IV PRN (13:00)
[2022-01-09] MEDS ORDERED: GLIP10TA24 PO (15:46)
[2022-01-09] MEDS ORDERED: SITA1TAB6 PO (15:46)
[2022-01-09] MEDS ORDERED: LOSA25TA41 PO (15:46)
[2022-01-09] MEDS ORDERED: DAPA10TA PO (15:46)
[2022-01-09] MEDS ORDERED: ACET-3075 PO (15:46)
[2022-01-09] MEDS ORDERED: CLOP75TA28 PO (15:46)
[2022-01-09] MEDS ORDERED: FAMO20TA5 PO (15:46)
[2022-01-09] MEDS ORDERED: CNC1KV IM (15:49)
[2022-01-09] MEDS ORDERED: TEST200V21 IM (15:49)
--- NOTE | 2022-01-09 16:21 | Consultation-Cardiology ---
HPI-Cardiology Cardiology Consultation: Date of Consultation 01/09/22 Date of Admission 01/09/22 Attending Physician Micheal Roldan DO Admitting Physician Admitting Physician: Ting Ryan MD Attending Physician: Ting Ryan MD Consulting Physician CORI BOWLING JR, MD HPI: Time Seen by a Provider: 16:20 Chief Complaint: REASON FOR CONSULTATION: Chest pain. I had the pleasure of seeing Jai on the cardiac stepdown unit at [facility] in [place], [place] today. He has a history of coronary artery disease with numerous coronary stents in the past but the most recent being over 4 years ago. 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 over the past few weeks to months, he has been having some intermittent lightheaded and dizzy spells. He denies any syncope. He saw his maintenance job titles who thought this could be related to amlodipine which was discontinued. His lightheadedness may have improved somewhat but did not completely resolve. Then yesterday, he was having general malaise. He did not seem to have any specific complaints but just did not feel well yesterday. Then this morning when he woke up, after a short while he developed a pressure in the left and right his chest. He went to see his primary provider who gave him a sublingual nitroglycerin and called EMS. On the way to the hospital, he was given chewable aspirin and another 1 or 2 nitroglycerin and his chest discomfort diminished and nearly subsided. During h is evaluation in the emergency room, he was found to have an elevated troponin level and a cardiology consultation was requested. When I saw him later this afternoon, he had minimal chest tightness. He denies associated symptoms with the chest tightness. He denies dyspnea, paroxysmal nocturnal dyspnea, orthopnea, palpitations, or lower extremity edema. Certain portions of this document may have been dictated utilizing voice recognition technology. Inherent to this technology, typographical and grammati wes errors may exist. As much as I am diligent to identify and correct these mistakes, some errors may remain in the document. Review of Systems-Cardiology Review of Systems Other comments Review of 10 organ systems is as per the history of present illness, otherwise negative. All Other Systems Reviewed Negative Unless Noted: Yes [id number]-[id number] Hx Patient Social History Marrital Status: Employed/Student: retired Smoking Status: Never a Smoker Alcohol Use?: Yes Pt feels they are or have been: No Immunizations Up To Date Tetanus Booster (TDap): Less than 5yrs Date of Pneumonia Vaccine: May 16, 2012 Date of Influenza Vaccine: Apr 16, 2014 Past Medical History PMH As described under Assessment. Family Medical History Family History: FH: cancer 19 MOTHER Myocardial infarction 19 FATHER Allergies and Home Medications Allergies Coded Allergies: iodine (Verified Allergy, Unknown, SWELLING, 09/10/18) Patient Home Medication List Home Medication List Reviewed: Yes Acetaminophen/Diphenhydramine (Tylenol Pm Ex-Strength Caplet) 500 Mg-25 Mg Tablet, 1 EACH PO HS, (Reported) Entered as Reported by: ANITA MEDINA on 01/09/221545 Last Action: Converted Clopidogrel Bisulfate (Clopidogrel) 75 Mg Tablet, 75 MG PO DAILY, (Reported) Entered as Reported by: ANITA MEDINA on 01/09/221545 Last Action: Continued Cyanocobalamin (Cyanocobalamin Injection) 1,000 Mcg/Ml Inj, 1,000 MCG IM MONTHLY, (Reported) Entered as Reported by: ANITA MEDINA on 01/09/221548 Last Action: Held Dapagliflozin Propanediol (Farxiga) 10 Mg Tablet, 10 MG PO DAILY, (Reported) Entered as Reported by: ANITA MEDINA on 01/09/221545 Last Action: Converted Famotidine (Famotidine) 20 Mg Tablet, 20 MG PO BID, (Reported) Entered as Reported by: ANITA MEDINA on 01/09/221545 Last Action: Continued Glipizide (Glipizide ER) 10 Mg Tab.er.24, 10 MG PO BID, (Reported) Entered as Reported by: ANITA MEDINA on 01/09/221545 Last Action: Converted Losartan Potassium (Losartan Potassium) 25 Mg Tablet, 25 MG PO DAILY, (Reported) Entered as Reported by: ANITA MEDINA on 01/09/221545 Last Action: Continued Sitagliptin Phos/Metformin HCl (Janumet 50-1,000 mg Tablet) 50 Mg-1,000 Mg Tablet, 1 EA PO BID, (Reported) Entered as Reported by: ANITA MEDINA on 01/09/221545 Last Action: Held Testosterone Cypionate (Testosterone Cypionate) 200 Mg/Ml Vial, 200 MG IM MONTHLY, (Reported) Entered as Reported by: ANITA MEDINA on 01/09/22 1549 Last Action: Held Discontinued Medications Acetaminophen/Diphenhydramine (Tylenol Pm) 1 Ea Tab, 1 TAB PO HS, (Reported) Discontinued Reason: No Longer Taking Entered as Reported by: MELANIA GODFREY on 12/02/12 1030 Last Action: Discontinued Aliskiren Hemifumarate (Tekturna) 300 Mg Tab, 1 TAB PO DAILY, (Reported) Discontinued Reason: No Longer Taking Entered as Reported by: DELMAR CHRISTOPHER on 01/26/14 1335 Last Action: Discontinued Cephalexin Monohydrate (Cephalexin) 500 Mg Capsule, 1 EACH PO TID Discontinued Reason: No Longer Taking Prescribed by: MARY QUESADA on 06/17/141815 Last Action: Discontinued Clopidogrel Bisulfate (Plavix 75 Mg) 75 Mg Tablet, 75 MG PO DAILY, (Reported) Discontinued Reason: No Longer Taking Entered as Reported by: FERNANDO ZUNIGA on 10/17/12138 Last Action: Discontinued Cyclobenzaprine Hcl (Cyclobenzaprine Hcl) 10 Mg Tablet, 1 EACH PO Q8HR Discontinued Reason: No Longer Taking Prescribed by: DANIEL MENDOZA on 01/26/14 1431 Last Action: Discontinued Cyclobenzaprine Hcl (Cyclobenzaprine Hcl) 10 Mg Tablet, 1 EACH PO Q8H PRN for SPASMS Discontinued Reason: No Longer Taking Prescribed by: MARY QUESADA on 06/17/141815 Last Action: Discontinued Famotidine (Pepcid) 20 Mg Tablet, 20 MG PO BID, (Reported) Discontinued Reason: No Longer Taking Entered as Reported by: FERNANDO ZUNIGA on 10/17/12138 Last Action: Discontinued Glipizide (Glipizide Xl) 10 Mg Tab.sr.24h, 10 MG PO BID, (Reported) Discontinued Reason: No Longer Taking Entered as Reported by: FERNANDO ZUNIGA on 10/17/12138 Last Action: Discontinued Hydrocodone Bit/Acetaminophen (Hydrocodone-Apap 5-325 Tab) 1 Tab Tablet, 1 TAB PO Q4H PRN for PAIN Discontinued Reason: No Longer Taking Prescribed by: MARY QUESADA on 1/1/15 1816 Last Action: Discontinued Hydrocodone/Acetaminophen (Hydrocodone-Acetamin 7.5-325) 1 Each Tablet, 1 EACH PO Q6H PRN for PAIN-MODERATE (5-7) Discontinued Reason: No Longer Taking Prescribed by: GOOD RODRIGUEZ on 05/15/21 0813 Last Action: Discontinued Insulin Detemir (Levemir) 100 Unit/1 Ml Insuln.pen, 20 UNIT SQ DAILY AT LUNCH, (Reported) Discontinued Reason: No Longer Taking Entered as Reported by: FERNANDO ZUNIGA on 10/17/12 0141 Last Action: Discontinued Liraglutide (Victoza) 0.6 Mg/0.1 Ml Pen.injctr, 14 MG SQ DAILY, (Reported) Discontinued Reason: No Longer Taking Entered as Reported by: DELMAR CHRISTOPHER on 01/26/14 1335 Last Action: Discontinued Multivitamin (Multi-Vitamin Daily) 1 Each Tablet, 1 TAB PO DAILY, (Reported) Discontinued Reason: No Longer Taking Entered as Reported by: MELANIA GODFREY on 12/02/12 1030 Last Action: Discontinued Nebivolol Hcl (Bystolic) 2.5 Mg Tablet, 2.5 MG PO DAILY, (Reported) Discontinued Reason: No Longer Taking Entered as Reported by: FERNANDO ZUNIGA on 10/17/12 0139 Last Action: Discontinued Pitavastatin Calcium (Livalo) 2 Mg Tablet, 2 MG PO HS, (Reported) Discontinued Reason: No Longer Taking Entered as Reported by: MELANIA GODFREY on 02/09/13 1106 Last Action: Discontinued Sitagliptin Phos/Metformin Hcl (Janumet 50/1,000 Mg (Non Form)) 1 Each Tablet, 1 EACH PO BID, (Reported) Discontinued Reason: No Longer Taking Entered as Reported by: DELMAR CHRISTOPHER on 01/26/14 1335 Last Action: Discontinued Tramadol Hcl (Ultram) 50 Mg Tablet, 50 MG PO Q4H Discontinued Reason: No Longer Taking Prescribed by: DANIEL MENDOZA on 01/26/14 1431 Last Action: Discontinued Exam Vital Signs Vital Signs Date Time Temp Pulse Resp B/P (MAP) Pulse Ox O2 Delivery O2 Flow Rate FiO2 01/09/22 15:00 82 20 146/90 (108) 97 Room Air 01/09/22 09:45 36.7 01/09/22 09:45 2.00 Physical Exam General: Alert. No acute distress. Well nourished and appears stated age. Eye: Extraocular movements are intact. Conjunctivae are clear. There are no xanthelasma. HENT: Normocephalic. Atraumatic. Carotid pulsations 2/2 without bruits. Neck: Jugular venous pressure does not appear elevated. No thyromegaly appreciated. Respiratory: Lungs are clear to auscultation. Respirations are non-labored. Breath sounds are equal. Symmetrical chest wall expansion. Cardiovascular: Normal rate. Regular rhythm. No murmur. No gallop. Point of maximal impulse is not appear displaced. Good pulses equal in all extremities. No edema. Gastrointestinal: Soft. Normal bowel sounds. Skin: Skin turgor is normal. There is no pallor. Musculoskeletal: No kyphosis or scoliosis appreciated. Neurologic: Alert and oriented to person, place, time. Cranial nerves 3-12 appear grossly intact. The patient has good motor tone strength in the upper and lower extremities bilaterally. Psychiatric: Cooperative. Appropriate mood & affect. Labs Laboratory Tests Test 01/09/22 09:38 01/09/22 12:54 01/09/22 13:30 01/09/22 16:20 Range/Units White Blood Count 9.8 4.3-11.0 10^3/uL Red Blood Count 5.44 4.30-5.52 10^6/uL Hemoglobin 17.1 13.3-17.7 g/dL Hematocrit 51 40-54 % Mean Corpuscular Volume 93 80-99 fL Mean Corpuscular Hemoglobin 31 25-34 pg Mean Corpuscular Hemoglobin Concent 34 32-36 g/dL Red Cell Distribution Width 13.6 10.0-14.5 % Platelet Count 314 130-400 10^3/uL Mean Platelet Volume 10.4 9.0-12.2 fL Immature Granulocyte % (Auto) 1 % Neutrophils (%) (Auto) 77 H 42-75 % Lymphocytes (%) (Auto) 14 12-44 % Monocytes (%) (Auto) 6 0-12 % Eosinophils (%) (Auto) 1 0-10 % Basophils (%) (Auto) 0 0-10 % Neutrophils # (Auto) 7.5 1.8-7.8 10^3/uL Lymphocytes # (Auto) 1.4 1.0-4.0 10^3/uL Monocytes # (Auto) 0.6 0.0-1.0 10^3/uL Eosinophils # (Auto) 0.1 0.0-0.3 10^3/uL Basophils # (Auto) 0.0 0.0-0.1 10^3/uL Immature Granulocyte # (Auto) 0.1 0.0-0.1 10^3/uL Prothrombin Time 13.0 12.2-14.7 SEC INR Comment 1.0 0.8-1.4 Activated Partial Thromboplast Time 30 24-35 SEC D-Dimer < 0.27 0.00-0.49 UG/ML Sodium Level 138 135-145 MMOL/L Potassium Level 4.4 3.6-5.0 MMOL/L Chloride Level 101 98-107 MMOL/L Carbon Dioxide Level 22 21-32 MMOL/L Anion Gap 15 H 5-14 MMOL/L Blood Urea Nitrogen 14 7-18 MG/DL Creatinine 1.26 0.60-1.30 MG/DL Estimat Glomerular Filtration Rate 57 BUN/Creatinine Ratio 11 Glucose Level 273 H 70-105 MG/DL Calcium Level 9.4 8.5-10.1 MG/DL Corrected Calcium 9.2 8.5-10.1 MG/DL Magnesium Level 1.8 1.6-2.4 MG/DL Total Bilirubin 0.7 0.1-1.0 MG/DL Aspartate Amino Transf (AST/SGOT) 24 5-34 U/L Alanine Aminotransferase (ALT/SGPT) 27 0-55 U/L Alkaline Phosphatase 77 40-136 U/L Myoglobin 51.1 10.0-92.0 NG/ML Troponin I 0.310 *H 0.455 *H <0.028 NG/ML B-Type Natriuretic Peptide 56.2 <100.0 PG/ML Total Protein 7.6 6.4-8.2 GM/DL Albumin 4.3 3.2-4.5 GM/DL Glucometer 174 H 94 70-110 MG/DL Test 01/09/22 16:30 Range/Units Troponin I 0.777 *H <0.028 NG/ML Radiology ECHOCARDIOGRAM (01/09/2022): 1. This is a technically difficult study due to poor acoustic windows, particularly in the apical views. 2. Left ventricle: The cavity size is normal. There is mild concentric hypertrophy. Systolic function is normal. The estimated ejection fraction is 55- 60%. There are no regional wall motion abnormalities identified on this technically difficult study. Doppler parameters are consistent with abnormal left ventricular relaxation (grade 1 diastolic dysfunction). 3. Aortic root: The aortic root is mildly dilated with a diameter of 4 cm. 4. Pulmonary arteries: The pulmonary artery pressure cannot be estimated on this study due to inadequate tricuspid regurgitant envelope. ECG Impression ECG Comment Electrocardiogram from the emergency room earlier today showed sinus tachycardia at a heart rate of 104 bpm with poor R wave progression and possible old inferior myocardial infarction. No acute ST changes. Diagnosis/Problems Diagnosis/Problems (1) Non-ST elevation myocardial infarction (NSTEMI), initial care episode Assessment & Plan: He appears to be suffering a non-ST elevation myocardial infarction. He has normal ejection fraction. His symptoms have nearly resolved and he has had a minimal rise in his troponin level. I have started him on aspirin, therapeutic dosing of enoxaparin and beta-tea. We will continue Nitropaste. I have ordered ezetimibe. He has an intolerance to statin medication. We will plan on a cardiac catheterization tomorrow. If he has recurrent chest discomfort that we cannot get under control with nitroglycerin, then we may need to consider a more urgent cardiac catheterization at that time. (2) Coronary artery disease with unstable angina pectoris Assessment & Plan: As above. (3) Primary hypertension Assessment & Plan: I have reordered his losartan. I also recommend low-dose carvedilol in light of the coronary artery disease and unstable angina. (4) Mixed hyperlipidemia Assessment & Plan: He has an intolerance to statin medication. Lipid panel has been ordered. I will start him on ezetimibe. (5) Type 2 diabetes mellitus with complication Assessment & Plan: This is being managed by the hospitalist. We will hold metformin for cardiac catheterization. CORI BOWLING JR, MD Jan 09, 2022 16:21
[2022-01-09] MEDS ORDERED: CATHETER FLUSH 10 ML SYR IV PRN (17:30)
[2022-01-09] MEDS: NITROGLYCERIN 2% OINT 1 GM UNIT DOSE PACKET TOP SCH ×2 (17:43→23:03)
[2022-01-09] MEDS: glipiZIDE XL 5 MG (GLUCOTROL XL) TAB PO SCH (20:17)
[2022-01-09] MEDS: eZETimibe 10 MG (ZETIA) TABLET PO SCH (20:17)
[2022-01-09] MEDS: diphenhydrAMINE 25 MG TAB (BENADRYL) PO SCH (20:17)
[2022-01-09] MEDS: FAMOTIDINE 20 MG (PEPCID) TABLET PO SCH (20:17)
[2022-01-09] MEDS: ACETAMINOPHEN 500 MG TAB (TYLENOL) PO SCH (20:18)
[2022-01-09] MEDS ORDERED: GLIPIZIDE 10 MG PO SCH (21:00)
[2022-01-09] MEDS ORDERED: NON-FORMULARY MEDICATION 1 EA EA (Acetaminophen/Diphenhydramine (Tylenol Pm Ex-Strength Ca PO SCH (21:00)
[2022-01-09] MEDS: ENOXAPARIN 100 MG/1 ML (LOVENOX) SYR SC SCH (23:04)
[2022-01-10] VITALS (11 sets, daily range): BP systolic 102–147; BP diastolic 63–88
[2022-01-10] MEDS: NITROGLYCERIN 2% OINT 1 GM UNIT DOSE PACKET TOP SCH ×2 (05:33→12:00)
[2022-01-10 05:41] LABS: HEMATOCRIT 46 % (40-54); HEMOGLOBIN 15.1 g/dL (13.3-17.7); MEAN CORPUSCULAR HEMOGLOBIN 31 pg (25-34); MEAN CORPUSCULAR HGB CONC 33 g/dL (32-36); MEAN CORPUSCULAR VOLUME 93 fL (80-99); MEAN PLATELET VOLUME 10.3 fL (9.0-12.2); PLATELET COUNT 290 10^3/uL (130-400); WHITE BLOOD COUNT 11.4 10^3/uL (4.3-11.0)
[2022-01-10 06:04] LABS: POTASSIUM 3.8 MMOL/L (3.6-5.0)
[2022-01-10 06:05] LABS: CALCIUM 8.9 MG/DL (8.5-10.1)
[2022-01-10 06:09] LABS: CREATININE SERUM 0.99 MG/DL (0.60-1.30)
[2022-01-10] MEDS ORDERED: LIDOCAINE 1% INJ 20 ML VIAL ONE (06:53)
[2022-01-10] MEDS ORDERED: HEParin (CATH LAB) 1,000 ML IV ONE (06:54)
[2022-01-10] MEDS ORDERED: NS IV 1000 ML 1,000 ML IV ONE (07:30)
[2022-01-10] MEDS: ASPIRIN E.C. 81 MG (ECOTRIN) TAB PO SCH (08:04)
[2022-01-10] MEDS: EMPAGLIFLOZIN 10 MG TABLET (JARDIANCE) PO SCH (08:04)
[2022-01-10] MEDS: CLOPIDOGREL 75 MG (PLAVIX) TABLET PO SCH (08:05)
[2022-01-10] MEDS: glipiZIDE XL 5 MG (GLUCOTROL XL) TAB PO SCH ×2 (08:05→20:47)
[2022-01-10] MEDS: LOSARTAN 25 MG (COZAAR) TAB PO SCH (08:05)
[2022-01-10] MEDS ORDERED: NON-FORMULARY MEDICATION 1 EA EA (Dapagliflozin Propanediol (Farxiga) 10 MG) PO SCH (09:00)
--- NOTE | 2022-01-10 09:27 | Progress Note - Hospitalist ---
Subjective HPI/CC On Admission Date Seen by Provider: Jan 10, 2022 Patient is an 81-year-old male with past medical history of coronary artery disease status post multiple stents who presented to the emergency department due to chest pain. He states that he started feeling poorly yesterday but it got better overnight. He woke up and had recurrent chest pressure. He states it did not radiate anywhere else. He denies any diaphoresis, nausea, shortness of breath, lower extremity edema. He checked his blood pressure this morning and states it was 207/134. He was then seen by his primary care physician this morning who did an EKG and gave him nitro which helped his pain. They recommended him seeking evaluation in the emergency department at that point. He received another nitro which resolved his pain but work-up revealed a troponin of 0.3 and he is being admitted for further management of his NSTEMI. Subjective/Events-last exam Pt reports doing well. No further chest pain. Plan for cath today. Objective Exam Vital Signs Vital Signs Date Time Temp Pulse Resp B/P (MAP) Pulse Ox O2 Delivery O2 Flow Rate FiO2 01/11/22 08:00 96 Room Air 01/11/22 07:53 36.5 85 14 137/80 (99) 01/09/22 09:45 2.00 Capillary Refill : Less Than 3 Seconds General Appearance: No Apparent Distress, WD/WN Respiratory: Lungs Clear, No Respiratory Distress Cardiovascular: Regular Rate, Rhythm, No Murmur Neurologic/Psychiatric: Alert, Oriented x3 Results/Procedures Lab Laboratory Tests 01/11/22 04:39 Patient resulted labs reviewed. Imaging: Reviewed Imaging Report Assessment/Plan Assessment and Plan Assess & Plan/Chief Complaint NSTEMI CAD Troponin trended up to 0.777 Lovenox therapeutic Plan for cath today Cardiology consulted, appreciate recs HTN BP much improved Continue to monitor IDDMII Continue home regimen as able SSI BS 273 on arrival Accu checks ACHS Hold home metformin for cath DVT ppx: Lovenox therapeutic Diagnosis/Problems Diagnosis/Problems (1) CAD (coronary artery disease) (2) Essential (primary) hypertension (3) HLD (hyperlipidemia) (4) Non-insulin dependent type 2 diabetes mellitus (5) Non-STEMI (non-ST elevated myocardial infarction) Clinical Quality Measures AMI/AHF: ASA po Prior to arrival: Yes OBED RUDOLPH MD Jan 10, 2022 09:27
[2022-01-10] MEDS ORDERED: predniSONE 20 MG TAB PO ONE (10:00)
[2022-01-10] MEDS: ENOXAPARIN 100 MG/1 ML (LOVENOX) SYR SC SCH (11:00)
[2022-01-10] MEDS ORDERED: morphine INJ 10 MG/ML 1ML (SYR OR VIAL) IVP PRN (11:15)
[2022-01-10] MEDS ORDERED: ACETAMINOPHEN 500 MG TAB (TYLENOL) PO PRN (11:15)
[2022-01-10] MEDS: morphine INJ 4 MG/ML 1 ML (VIAL/SYRINGE) IVP PRN (12:38)
[2022-01-10] MEDS ORDERED: VERAPAMIL 5 MG/2 ML (CALAN) VIAL IV ONE (14:49)
[2022-01-10] MEDS ORDERED: MIDAZOLAM 5 MG/5 ML (VERSED) VIAL ONE (14:49)
[2022-01-10] MEDS ORDERED: fentaNYL INJ 100 MCG/2 ML AMP ONE (14:49)
[2022-01-10] MEDS ORDERED: HEParin 1000 UNIT/ML (10ML VIAL) FOR BOLUS ONE (14:49)
[2022-01-10] MEDS ORDERED: NITRO DRIP 25000 MCG/D5W 250 ML IV ONE (14:50)
[2022-01-10] MEDS ORDERED: diphenhydrAMINE 50 MG/ML INJ (BENADRYL) ONE (14:52)
[2022-01-10] MEDS ORDERED: methylPREDNISolone 125 MG (Solu-MEDROL) VIAL ONE (14:53)
[2022-01-10] MEDS ORDERED: FAMOTIDINE 20MG/2ML IV (PEPCID) ONE (14:53)
--- NOTE | 2022-01-10 15:03 | Pre-Op Note & Conscious Sedat ---
Pre-Operative Progress Note H&P Reviewed The H&P was reviewed, patient examined and no changes noted. Date H&P Reviewed: Jan 10, 2022 Time H&P Reviewed: 15:02 Pre-Op Diagnosis: Non-ST elevation myocardial infarction Given his current clinical status, he is considered moderately frail. He has no history of heart failure. Conscious Sedation Pre-Proced ASA Score 2 For ASA 3 and 4: Consider anesthesia and medical clearance. Also, for patients with a history of failed moderate sedation consider anesthesia. Airway Lungs Heart ASA score ASA 1: a normal healthy patient ASA 2: a patient with a mild systemic disease (mid diabetes, controlled hypertension, obesity ASA 3: a patient with a severe systemic disease that limits activity (angina, COPD, prior Myocardial infarction) ASA 4: a patient with an incapacitating disease that is a constant threat to life (CHF, renal failure) ASA 5: a moribund patient not expected to survive 24 hrs. (ruptured aneurysm) ASA 6: a declared brain- patient whose organs are being harvested. For emergent operations, add the letter E after the classification Mallampati Classification Grade 2 Sedation Plan Analgesia, Amnesia, Plan communicated to team members, Discussed options with patient/fam, Discussed risks with patient/fam The patient is an appropriate candidate to undergo the planned procedure, sedation, and anesthesia. The patient immediately re-assessed prior to indication. CORI BOWLING JR, MD Jan 10, 2022 15:03
[2022-01-10] MEDS ORDERED: NS IV 1000 ML 1,000 ML ONE (15:42)
[2022-01-10] MEDS ORDERED: meTOprolol 5 MG/5 ML (LOPRESSOR) VIAL ONE (16:20)
[2022-01-10] MEDS ORDERED: CLOPIDOGREL 300 MG (PLAVIX) TABLET PO ONE (16:25)
--- NOTE | 2022-01-10 16:57 | Cardiac Cath Report ---
CARDIAC CATHETERIZATION DATE OF PROCEDURE: 01/10/2022 INDICATION: Non-ST elevation myocardial infarction. HISTORY: The patient is a 81 year old male with a known history of coronary artery disease with several coronary stents in the left anterior descending coronary artery at an outside facility in the past. He presented to the hospital with chest pain. His troponin levels gradually became elevated consistent with a non-ST elevation myocardial infarction. He became pain-free with aspirin, clopidogrel, enoxaparin, beta-tea, and topical nitrates. Due to the non-ST elevation myocardial infarction, he is now referred for further evaluation with a cardiac catheterization. PROCEDURES PERFORMED: 1. Diagnostic minto coronary angiography. 2. Drug-eluting stent placement to the proximal segment of the ramus intermedius branch. This was most likely the ischemia related vessel for the acute non-ST elevation myocardial infarction. 3. Drug-eluting stent placement to the mid right coronary artery. PROCEDURE DESCRIPTION: After informed consent and in the fasting state, left heart catheterization was performed through the right radial artery utilizing a 6 Peruvian system by percutaneous approach. A 6 Peruvian AL-1 guide catheter was utilized to interrogate the right coronary artery. I was not able to get sufficient torque to engage the right coronary artery with a diagnostic 5 Peruvian JR4 catheter. I was unable to engage the left main coronary artery from the right radial artery. Therefore, I gained access to the right femoral artery utilizing a micropuncture technique by percutaneous approach. The micropuncture sheath was exchanged for a 6 Peruvian sheath. A 5 Peruvian FL 4 diagnostic catheter was utilized to interrogate the left coronary artery. A 6 Peruvian CLS 4 guide catheter was utilized for the percutaneous coronary intervention on the ramus intermedius branch. A 6 Peruvian FL 4 guide catheter was utilized for the percutaneous coronary intervention on the right coronary artery. All catheters were exchanged over a guidewire. Following the procedure, a vascular band was applied to the radial artery access site and the sheath was removed with good hemostasis. Following the procedure, a right femoral artery angiogram revealed the sheath to be entering in the profundofemoral artery but this was a good- sized vessel. A Mynx closure device was deployed for hemostasis of the right femoral artery. RESULTS: HEMODYNAMICS: The aortic pressure was 116/58 mmHg. The aortic valve was not crossed. CORONARY ANGIOGRAPHY: The coronary arteries were mildly calcified. Left main coronary artery: Free of significant disease. Left anterior descending coronary artery: There was stents extending from the mid segment down to the distal segment with moderate neointimal hyperplasia at approximately 50% stenotic in the more proximal segment of the stents. There was TYE-2 flow. Left circumflex coronary artery: Very small in caliber but free of significant disease. Ramus intermedius branch: There was a moderate sized ramus intermedius branch which contained a 99% stenosis in the proximal segment with TYE-1 flow. There was another 50% stenosis in the midsegment of the vessel. This was most likely the ischemia related vessel for the non-ST elevation myocardial infarction. Right coronary artery: Dominant and there was a 90% stenosis in the midsegment with TYE-2 flow. PERCUTANEOUS CORONARY INTERVENTION OF RIGHT CORONARY ARTERY: Percutaneous coronary intervention was carried out in the mid right coronary artery through a 6 Peruvian FL 4 guide catheter. The lesion was successfully crossed with a Car reviews guidewire. I subsequently performed coronary angioplasty with a 2.5 x 12 mm Trek balloon at a pressure of 10 ricky. Flow was improved. I subsequently deployed a 3 x 15 mm drug-eluting Xience Skypoint stent at a pressure of 16 ricky. Following stent placement, there was 0% residual stenosis with TYE-3 flow. PERCUTANEOUS CORONARY INTERVENTION OF RAMUS INTERMEDIUS BRANCH: Percutaneous coronary intervention was carried out on the ramus intermedius branch through a 6 Peruvian CLS 4 guide catheter. The lesion was successfully crossed with the s tari [email or web address] guidewire. I subsequently performed coronary angioplasty with the same 2.5 x 12 mm Trek balloon at a pressure of 10 ricky. Flow was improved. I subsequently deployed a 3 x 15 mm drug-eluting Xience Skypoint stent at a pressure of 16 ricky. Following stent placement, there was 0% residual stenosis with TYE-3 flow. IMPRESSION: 1. Normal central aortic pressure. 2. Patent stents from the mid down to the distal left anterior descending coronary artery with moderate neointimal hyperplasia at approximately 50% stenotic in the more proximal segment of the stents with TYE II flow. 3. There was a 99% stenosis in the proximal segment of the ramus intermedius branch. This was most likely the ischemia related vessel for the acute non-ST elevation myocardial infarction. 4. There was a 90% stenosis in the mid segment of the dominant right coronary artery. 5. Status post drug-eluting stent placement to the mid right coronary artery with a 3 x 15 mm Xience Skypoint stent with 0% residual stenosis and TYE-3 flow. 6. Status post drug-eluting stent placement to the proximal segment of the ramus intermedius branch with a 3 x 15 mm Xience Skypoint stent with 0% residual stenosis and TYE-3 flow. 7. The patient is known to have normal left ventricular systolic function with an estimated ejection fraction 55-60% by echocardiogram performed on 01/09/2022. Certain portions of this document may have been dictated utilizing voice recognition technology. Inherent to this technology, typographical and grammatical errors may exist. As much as I am diligent to identify and correct these mistakes, some errors may remain in the document. CORI BOWLING JR, MD Jan 10, 2022 16:57
[2022-01-10] MEDS: NS IV 1000 ML 1,000 ML IV SCH (18:05)
[2022-01-10] MEDS: eZETimibe 10 MG (ZETIA) TABLET PO SCH (20:47)
[2022-01-10] MEDS: diphenhydrAMINE 25 MG TAB (BENADRYL) PO SCH (20:47)
[2022-01-10] MEDS: ACETAMINOPHEN 500 MG TAB (TYLENOL) PO SCH (20:48)
[2022-01-10] MEDS: FAMOTIDINE 20 MG (PEPCID) TABLET PO SCH (20:48)
[2022-01-11] MEDS: morphine INJ 4 MG/ML 1 ML (VIAL/SYRINGE) IVP PRN (00:15)
[2022-01-11] MEDS: NS IV 1000 ML 1,000 ML IV SCH (04:06)
[2022-01-11 05:08] LABS: BASOPHILS % (AUTO) 0 % (0-10); EOSINOPHILS % (AUTO) 0 % (0-10); HEMATOCRIT 48 % (40-54); LYMPHOCYTES # (AUTO) 1.3 10^3/uL (1.0-4.0); LYMPHOCYTES % (AUTO) 10 % (12-44); MEAN CORPUSCULAR HEMOGLOBIN 31 pg (25-34); MEAN CORPUSCULAR HGB CONC 33 g/dL (32-36); MEAN CORPUSCULAR VOLUME 94 fL (80-99); MEAN PLATELET VOLUME 10.3 fL (9.0-12.2); MONOCYTES # (AUTO) 0.6 10^3/uL (0.0-1.0); MONOCYTES % (AUTO) 4 % (0-12); NEUTROPHILS # (AUTO) 10.9 10^3/uL (1.8-7.8); NEUTROPHILS % (AUTO) 85 % (42-75); PLATELET COUNT 318 10^3/uL (130-400); WHITE BLOOD COUNT 12.9 10^3/uL (4.3-11.0)
[2022-01-11 05:21] LABS: POTASSIUM 4.4 MMOL/L (3.6-5.0)
[2022-01-11 05:22] LABS: CALCIUM 9.1 MG/DL (8.5-10.1)
[2022-01-11 05:26] LABS: CREATININE SERUM 1.27 MG/DL (0.60-1.30)
[2022-01-11 07:53] VITALS: BP 137/80
--- NOTE | 2022-01-11 08:15 | Discharge Summary ---
Diagnosis/Chief Complaint Date of Admission Jan 09, 2022 at 10:46 Date of Discharge Discharge Date: Jan 11, 2022 Admission Diagnosis NSTEMI Primary Care RoldanRadha Kaci Haddadp,[facility] Discharge Diagnosis (1) Non-ST elevation myocardial infarction (NSTEMI), initial care episode Assessment & Plan: He appears to be suffering a non-ST elevation myocardial infarction. He has normal ejection fraction. His symptoms have nearly resolved and he has had a minimal rise in his troponin level. I have started him on aspirin, therapeutic dosing of enoxaparin and beta-tea. We will continue Nitropaste. I have ordered ezetimibe. He has an intolerance to statin medication. We will plan on a cardiac catheterization tomorrow. If he has recurrent chest discomfort that we cannot get under control with nitroglycerin, then we may need to consider a more urgent cardiac catheterization at that time. (2) Coronary artery disease with unstable angina pectoris Assessment & Plan: As above. (3) Primary hypertension Assessment & Plan: I have reordered his losartan. I also recommend low-dose carvedilol in light of the coronary artery disease and unstable angina. (4) Mixed hyperlipidemia Assessment & Plan: He has an intolerance to statin medication. Lipid panel has been ordered. I will start him on ezetimibe. (5) Type 2 diabetes mellitus with complication Assessment & Plan: This is being managed by the hospitalist. We will hold metformin for cardiac catheterization. Discharge Summary Procedures/Consulations Dr Lawson- Cardiology Discharge Physical Exam Allergies: Coded Allergies: iodine (Verified Allergy, Unknown, SWELLING, 09/10/18) Vitals & I&Os Vital Signs Date Time Temp Pulse Resp B/P (MAP) Pulse Ox O2 Delivery O2 Flow Rate FiO2 01/11/22 12:10 01/11/22 08:00 96 Room Air 01/11/22 07:53 36.5 85 14 01/09/22 09:45 2.00 General Appearance: No Apparent Distress, WD/WN Respiratory: Lungs Clear, No Respiratory Distress Gastrointestinal: Normal Bowel Sounds, Soft Neurologic/Psychiatric: Alert, Oriented x3 Hospital Course Patient was admitted to the hospital secondary to an NSTEMI. He has a long history of coronary artery disease with multiple stents. He was seen by cardiology and underwent cardiac cath with stent deployment mid right coronary artery and to the proximal segment of the ramus intermedius branch. He jay ated this well and was able to be discharged home in stable and improved condition to follow-up with Dr. Roldan and Dr. Lawson. Labs (last 24 hrs) Patient resulted labs reviewed. Pending Labs Imaging: Reviewed Imaging Report Discussion & Recommendations Discharge Planning: <30 minutes discharge planning Discharge Home Medications: Active Scripts Active Aspirin EC (Aspirin) 81 Mg Tablet.dr 81 Mg PO DAILY Carvedilol 3.125 Mg Tablet 3.125 Mg PO BID Nitroglycerin 0.4 Mg Tab.subl 0.4 Mg SL UD PRN Ezetimibe 10 Mg Tablet 10 Mg PO HS Reported Testosterone Cypionate 200 Mg/Ml Vial 200 Mg IM MONTHLY Cyanocobalamin Injection (Cyanocobalamin) 1,000 Mcg/Ml Inj 1,000 Mcg IM MONTHLY Tylenol Pm Ex-Strength Caplet (Acetaminophen/Diphenhydramine) 500 Mg-25 Mg Tablet 1 Each PO HS Clopidogrel (Clopidogrel Bisulfate) 75 Mg Tablet 75 Mg PO DAILY Famotidine 20 Mg Tablet 20 Mg PO BID Losartan Potassium 25 Mg Tablet 25 Mg PO DAILY Farxiga (Dapagliflozin Propanediol) 10 Mg Tablet 10 Mg PO DAILY Glipizide ER (Glipizide) 10 Mg Tab.er.24 10 Mg PO BID Janumet 50-1,000 mg Tablet (Sitagliptin Phos/Metformin HCl) 50 Mg-1,000 Mg Tablet 1 Ea PO BID Instructions to patient/family Please see electronic discharge instructions given to patient. Clinical Quality Measures AMI/AHF: ASA po Prior to arrival: Yes OBED RUDOLPH MD Jan 11, 2022 08:15
[2022-01-11] MEDS: EMPAGLIFLOZIN 10 MG TABLET (JARDIANCE) PO SCH (08:17)
[2022-01-11] MEDS: ENOXAPARIN 40 MG/0.4 ML (LOVENOX) SYR SC SCH ×2 (08:17→09:00)
[2022-01-11] MEDS: ASPIRIN E.C. 81 MG (ECOTRIN) TAB PO SCH (08:17)
[2022-01-11] MEDS: LOSARTAN 25 MG (COZAAR) TAB PO SCH (08:17)
[2022-01-11] MEDS: glipiZIDE XL 5 MG (GLUCOTROL XL) TAB PO SCH (08:17)
[2022-01-11] MEDS: CLOPIDOGREL 75 MG (PLAVIX) TABLET PO SCH (08:17)
--- NOTE | 2022-01-11 08:21 | Discharge Inst-Simple/Standard ---
Discharge Inst-Standard Discharge Medications New, Converted or Re-Newed RX: Transmitted to Pharmacy Patient Instructions/Follow Up Plan of Care/Instructions/FU: Please continue to take your medications as written. Please follow up with your primary care doctor and Dr Lawson as scheduled. If you need anything in the meantime please call or have Rita call me. Activity as Tolerated: Yes Discharge Diet: Cardiac Diet Return to The Hospital For: Chst pain, shortness of breath, weakness, bleeding from your incision, if you feel you are getting worse. OBED RUDOLPH MD Jan 11, 2022 08:21
--- NOTE | 2022-01-11 08:24 | Discharge Summary ---
Diagnosis/Chief Complaint Date of Admission Jan 09, 2022 at 10:46 Date of Discharge Discharge Date: Jan 11, 2022 Admission Diagnosis NSTEMI Primary Care JamarRadha Kaci Gaviria,[facility] Discharge Diagnosis (1) Non-ST elevation myocardial infarction (NSTEMI), initial care episode Assessment & Plan: He appears to be suffering a non-ST elevation myocardial infarction. He has normal ejection fraction. His symptoms have nearly resolved and he has had a minimal rise in his troponin level. I have started him on aspirin, therapeutic dosing of enoxaparin and beta-tea. We will continue Nitropaste. I have ordered ezetimibe. He has an intolerance to statin medication. We will plan on a cardiac catheterization tomorrow. If he has recurrent chest discomfort that we cannot get under control with nitroglycerin, then we may need to consider a more urgent cardiac catheterization at that time. (2) Coronary artery disease with unstable angina pectoris Assessment & Plan: As above. (3) Primary hypertension Assessment & Plan: I have reordered his losartan. I also recommend low-dose carvedilol in light of the coronary artery disease and unstable angina. (4) Mixed hyperlipidemia Assessment & Plan: He has an intolerance to statin medication. Lipid panel has been ordered. I will start him on ezetimibe. (5) Type 2 diabetes mellitus with complication Assessment & Plan: This is being managed by the hospitalist. We will hold metformin for cardiac catheterization. Discharge Summary Discharge Physical Exam Allergies: Coded Allergies: iodine (Verified Allergy, Unknown, SWELLING, 09/10/18) Vitals & I&Os Vital Signs Date Time Temp Pulse Resp B/P (MAP) Pulse Ox O2 Delivery O2 Flow Rate FiO2 01/11/22 07:53 36.5 85 14 137/80 (99) 95 01/11/22 03:52 Room Air 01/09/22 09:45 2.00 Hospital Course Labs (last 24 hrs) Laboratory Tests 01/10/22 11:36: Glucometer 141H 01/10/22 20:51: Glucometer 323H 01/11/22 04:39: White Blood Count 12.9H, Red Blood Count 5.14, Hemoglobin 16.0, Hematocrit 48, Mean Corpuscular Volume 94, Mean Corpuscular Hemoglobin 31, Mean Corpuscular Hemoglobin Concent 33, Red Cell Distribution Width 13.8, Platelet Count 318, Mean Platelet Volume 10.3, Immature Granulocyte % (Auto) 1, Neutrophils (%) (Auto) 85H, Lymphocytes (%) (Auto) 10L, Monocytes (%) (Auto) 4, Eosinophils (%) (Auto) 0, Basophils (%) (Auto) 0, Neutrophils # (Auto) 10.9H, Lymphocytes # (Auto) 1.3, Monocytes # (Auto) 0.6, Eosinophils # (Auto) 0.0, Basophils # (Auto) 0.0, Immature Granulocyte # (Auto) 0.1, Sodium Level 137, Potassium Level 4.4, Chloride Level 103, Carbon Dioxide Level 17L, Anion Gap 17H, Blood Urea Nitrogen 25H, Creatinine 1.27, Estimat Glomerular Filtration Rate 57, BUN/Creatinine Ratio 20, Glucose Level 221H, Calcium Level 9.1 Patient resulted labs reviewed. Pending Labs Laboratory Tests 01/11/22 04:39: White Blood Count 12.9, Red Blood Count 5.14, Hemoglobin 16.0, Hematocrit 48, Mean Corpuscular Volume 94, Mean Corpuscular Hemoglobin 31, Mean Corpuscular Hemoglobin Concent 33, Red Cell Distribution Width 13.8, Platelet Count 318, Mean Platelet Volume 10.3, Immature Granulocyte % (Auto) 1, Neutrophils (%) (Auto) 85, Lymphocytes (%) (Auto) 10, Monocytes (%) (Auto) 4, Eosinophils (%) (Auto) 0, Basophils (%) (Auto) 0, Neutrophils # (Auto) 10.9, Lymphocytes # (Auto) 1.3, Monocytes # (Auto) 0.6, Eosinophils # (Auto) 0.0, Basophils # (Auto) 0.0, Immature Granulocyte # (Auto) 0.1, Sodium Level 137, Potassium Level 4.4, Chloride Level 103, Carbon Dioxide Level 17, Anion Gap 17, Blood Urea Nitrogen 25, Creatinine 1.27, Estimat Glomerular Filtration Rate 57, BUN/Creatinine Ratio 20, Glucose Level 221, Calcium Level 9.1 Imaging: Reviewed Imaging Report Discharge Home Medications: Active Scripts Active Reported Testosterone Cypionate 200 Mg/Ml Vial 200 Mg IM MONTHLY Cyanocobalamin Injection (Cyanocobalamin) 1,000 Mcg/Ml Inj 1,000 Mcg IM MONTHLY Tylenol Pm Ex-Strength Caplet (Acetaminophen/Diphenhydramine) 500 Mg-25 Mg Tab let 1 Each PO HS Clopidogrel (Clopidogrel Bisulfate) 75 Mg Tablet 75 Mg PO DAILY Famotidine 20 Mg Tablet 20 Mg PO BID Losartan Potassium 25 Mg Tablet 25 Mg PO DAILY Farxiga (Dapagliflozin Propanediol) 10 Mg Tablet 10 Mg PO DAILY Glipizide ER (Glipizide) 10 Mg Tab.er.24 10 Mg PO BID Janumet 50-1,000 mg Tablet (Sitagliptin Phos/Metformin HCl) 50 Mg-1,000 Mg Tablet 1 Ea PO BID Instructions to patient/family Please see electronic discharge instructions given to patient. Clinical Quality Measures AMI/AHF: ASA po Prior to arrival: Yes OBED RUDOLPH MD Jan 11, 2022 08:24
[2022-01-11] MEDS ORDERED: EZET10TA49 PO (08:32)
[2022-01-11] MEDS ORDERED: ASPI-1238 PO (08:32)
[2022-01-11] MEDS ORDERED: NITR0.4T42 SL (08:32)
[2022-01-11] MEDS ORDERED: CARV3.122 PO (08:32)
[2022-01-11] MEDS ORDERED: ENOXAPARIN 100 MG/1 ML (LOVENOX) SYR SC SCH (09:00)
--- NOTE | 2022-01-11 10:01 | Cardiology Progress Note ---
Progress Note-Cardiology Events since last exam Date Seen by Provider: Jan 11, 2022 Time Seen by Provider: 10:01 Events since last exam I am following him due to coronary artery disease and NSTEMI. He denies any further chest discomfort. He denies dyspnea, palpitations, syncope, or ankle edema. He would like to go home today. Certain portions of this document may have been dictated utilizing voice recogni tion technology. Inherent to this technology, typographical and grammatical errors may exist. As much as I am diligent to identify and correct these mistakes, some errors may remain in the document. Vitals Last set of Vitals Signs Vital Signs 01/09/22 01/11/22 01/11/22 09:45 07:53 08:00 Temp 36.5 Pulse 85 Resp 14 B/P (MAP) 137/80 (99) Pulse Ox 96 O2 Delivery Room Air O2 Flow Rate 2.00 Labs Labs Laboratory Tests 01/11/22 04:39 Exam Vital Signs Vital Signs Date Time Temp Pulse Resp B/P (MAP) Pulse Ox O2 Delivery O2 Flow Rate FiO2 01/11/22 12:10 01/11/22 08:00 96 Room Air 01/11/22 07:53 36.5 85 14 01/09/22 09:45 2.00 Physical Exam General: Alert. No acute distress. Eye: No xanthelasma. HENT: Normocephalic. Neck: Jugular venous pressure does not appear elevated. Respiratory: Lungs are clear to auscultation. Respirations are non-labored. Breath sounds are equal. Symmetrical chest wall expansion. Cardiovascular: Normal rate. Regular rhythm. No murmur. No gallop. No edema. Gastrointestinal: Soft. Normal bowel sounds. Skin: Warm. Dry. Neurologic: Alert and oriented to person, place, time. Cranial nerves 3-11 grossly intact. Psychiatric: Cooperative. Appropriate mood & affect. Labs Laboratory Tests Test 01/10/22 20:51 01/11/22 04:39 Range/Units Glucometer 323 H 70-110 MG/DL White Blood Count 12.9 H 4.3-11.0 10^3/uL Red Blood Count 5.14 4.30-5.52 10^6/uL Hemoglobin 16.0 13.3-17.7 g/dL Hematocrit 48 40-54 % Mean Corpuscular Volume 94 80-99 fL Mean Corpuscular Hemoglobin 31 25-34 pg Mean Corpuscular Hemoglobin Concent 33 32-36 g/dL Red Cell Distribution Width 13.8 10.0-14.5 % Platelet Count 318 130-400 10^3/uL Mean Platelet Volume 10.3 9.0-12.2 fL Immature Granulocyte % (Auto) 1 % Neutrophils (%) (Auto) 85 H 42-75 % Lymphocytes (%) (Auto) 10 L 12-44 % Monocytes (%) (Auto) 4 0-12 % Eosinophils (%) (Auto) 0 0-10 % Basophils (%) (Auto) 0 0-10 % Neutrophils # (Auto) 10.9 H 1.8-7.8 10^3/uL Lymphocytes # (Auto) 1.3 1.0-4.0 10^3/uL Monocytes # (Auto) 0.6 0.0-1.0 10^3/uL Eosinophils # (Auto) 0.0 0.0-0.3 10^3/uL Basophils # (Auto) 0.0 0.0-0.1 10^3/uL Immature Granulocyte # (Auto) 0.1 0.0-0.1 10^3/uL Sodium Level 137 135-145 MMOL/L Potassium Level 4.4 3.6-5.0 MMOL/L Chloride Level 103 98-107 MMOL/L Carbon Dioxide Level 17 L 21-32 MMOL/L Anion Gap 17 H 5-14 MMOL/L Blood Urea Nitrogen 25 H 7-18 MG/DL Creatinine 1.27 0.60-1.30 MG/DL Estimat Glomerular Filtration Rate 57 BUN/Creatinine Ratio 20 Glucose Level 221 H 70-105 MG/DL Calcium Level 9.1 8.5-10.1 MG/DL Diagnosis/Problems Diagnosis/Problems (1) Non-ST elevation myocardial infarction (NSTEMI), initial care episode Assessment & Plan: He has suffered an acute non-ST elevation myocardial infarction most likely related to subtotal occlusion of the ramus intermedius branch which was treated with a drug-eluting stent. I also placed a drug- eluting stent to the right coronary artery. He is doing well without any recurrent angina. He will continue on aspirin, clopidogrel, and beta-tea. He has been intolerant to statin medications in the past. I have started him on ezetimibe. From a cardiac standpoint, he can be discharged to home. 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 (2) Coronary artery disease with unstable angina pectoris Assessment & Plan: As above. (3) Primary hypertension Assessment & Plan: I have reordered his losartan. I also recommend low-dose carvedilol in light of the coronary artery disease and NSTEMI. (4) Mixed hyperlipidemia Assessment & Plan: He has an intolerance to statin medication. As above, I sta rted him on ezetimibe. (5) Type 2 diabetes mellitus with complication Assessment & Plan: This is being managed by the hospitalist. We will hold metformin in light of the cardiac catheterization. He can resume this in 2 days. CORI BOWLING JR, MD Jan 11, 2022 10:01
== END 2022-01-11 12:10 | disposition home or self-care (01) | DRG 247 ==
LOC: EDUNIT# 09:33 → ER 09:35 → CSD 10:46
PROVIDERS: ADMIT Family Medicine; ATTEND Family Medicine
PROC: 027135Z Dilation of Coronary Artery, Two Arteries with Two Drug-eluting Intraluminal Devices, Percutaneous Approach (ICD-10-PCS; principal; 2022-01-10)
PROC: B2111ZZ Fluoroscopy of Multiple Coronary Arteries using Low Osmolar Contrast (ICD-10-PCS; 2022-01-10)
DX: I21.4 Non-ST elevation (NSTEMI) myocardial infarction (principal); I25.110 Atherosclerotic heart disease of native coronary artery with unstable angina pectoris; I11.0 Hypertensive heart disease with heart failure; I50.9 Heart failure, unspecified; E11.9 Type 2 diabetes mellitus without complications; E78.2 Mixed hyperlipidemia; Z95.5 Presence of coronary angioplasty implant and graft; Z79.84 Long term (current) use of oral hypoglycemic drugs; Z79.4 Long term (current) use of insulin; Z91.048 Other nonmedicinal substance allergy status
CPT/HCPCS: 36415; 71045; 80048; 80053; 80061; 82947; 83735; 83874; 83880; 84484; 85025; 85027; 85379; 85610; 85730; 93005; 93041; 93306; 93454